=== PATIENT | female | born 1980 | race Caucasian/White ===

== ENCOUNTER → 2022-02-16 10:45 | Outpatient (CLI) | payer OTHER, SELFPAY ==
--- NOTE | 2022-02-16 10:53 | DI.RAD.S_ITS ---
PROCEDURE: XR THORACIC SPINE 2V INDICATIONS: thoracic and lumbar back pain, scoliosis TECHNIQUE: 3 views of the thoracic spine were acquired. COMPARISON: None. FINDINGS: Bones: No fractures or dislocations. Left-sided spinal stabilization chan is present. There is moderate rightward curvature of the mid/lower thoracic spine. Multilevel disc space narrowing and endplate osteophyte formation, indicating degenerative disc disease. No suspicious bony lesions. Visualized ribs are intact. Soft tissues: No paravertebral stripe thickening. IMPRESSION: 1. Postsurgical sequelae. 2. Rightward curvature of the thoracic spine. 3. Multilevel degenerative disc disease. 4. No acute fracture. No osseous lesion. If symptoms and/or clinical suspicion for pathology persist, further assessment with repeat, or advanced imaging (e.g., CT, MRI, or bone scan) may be helpful for further assessment. Dictated by: Darryl Lal M.D. on 02/16/2022 at 12:10 Approved by: Darryl Lal M.D. on 02/16/2022 at 12:11
--- NOTE | 2022-02-16 10:53 | DI.RAD.S_ITS ---
PROCEDURE: XR LUMBAR SPINE 2-3V INDICATIONS: thoracic and lumbar back pain, scoliosis TECHNIQUE: 3 views of the lumbar spine were acquired. COMPARISON: None. FINDINGS: Bones: 5 [id number] vertebrae are present. There is moderate leftward curvature of the mid lumbar spine. Left-sided thoracolumbar spinal stabilization chan is present. No vertebral body compression fractures. No suspicious bony lesions. Multilevel disc space narrowing and endplate osteophyte formation throughout the thoracolumbar spine. Roughly 3 mm of retrolisthesis of L2 on L3. Soft tissues: Overlying bowel gas pattern is normal. No suspicious soft tissue calcifications. IMPRESSION: 1. Postsurgical sequelae. 2. Multilevel degenerative disc disease. 3. Leftward curvature of the lumbar spine. Dictated by: Darryl Lal M.D. on 02/16/2022 at 12:11 Approved by: Darryl Lal M.D. on 02/16/2022 at 12:12
== END ==
PROVIDERS: Referring Provider Internal Medicine Cardiovascular Disease; Visit Provider Internal Medicine Cardiovascular Disease
DX: M51.34 Other intervertebral disc degeneration, thoracic region (principal); M51.36 Other intervertebral disc degeneration, lumbar region; M54.50 Low back pain, unspecified; M41.9 Scoliosis, unspecified
CPT/HCPCS: 72072; 72100

== ENCOUNTER → 2022-05-23 12:50 | Outpatient (CLI) | payer OTHER, SELFPAY ==
--- NOTE | 2022-05-23 12:52 | DI.MRI.S_ITS ---
PROCEDURE: MR LUMBAR SPINE WO CON INDICATIONS: LUMBAR RADICULOPATHY TECHNIQUE: Noncontrast sagittal T1 spin echo and T2 fast echo, sagittal STIR, and T2 fast spin echo through the lumbar spine. In cases with scoliosis, additional coronal T2 fast spin echo may be performed. COMPARISON: None. FINDINGS: Image quality: Excellent. Alignment and Curvature: Levoscoliosis of the lumbar spine with a Barclay angle of 28 degrees. Bone Marrow: Marrow is of normal overall signal. No acute vertebral body compression fractures. Spinal Cord: Conus medullaris terminates at the L1 level. Visualized cord demonstrates normal signal and size. Paraspinous Soft Tissues: No paravertebral masses. T12-L1: No significant disc bulge. The foramina and central canal are patent. L1-L2: No significant disc bulge. The foramina and central canal are patent. L2-L3: Modic type 3 endplate degenerative changes with disc osteophytes and a diffuse disc bulge cause mild bilateral foraminal stenosis. The central canal is patent. L3-L4: The disc is desiccated with no significant disc bulge. The foramina and central canal are patent. L4-L5: No significant disc bulge. The foramina and central canal are patent. L5-S1: No significant disc bulge. The foramina and central canal are patent. IMPRESSION: 1. Degenerative disc disease of L2-3 as detailed above. 2. No other significant disc disease at the other levels. 3. Levoscoliosis of the lumbar spine with a Barclay angle of 28 degrees. Dictated by: Ronal Jacinto M.D. on 05/24/2022 at 10:15 Approved by: Ronal Jacinto M.D. on 05/24/2022 at 10:19
--- NOTE | 2022-05-23 12:52 | DI.MRI.S_ITS ---
PROCEDURE: MR THORACIC SPINE WO CON INDICATIONS: THORACIC RADICULOPATHY TECHNIQUE: Noncontrast sagittal T1 spine echo and T2 fast spin echo, sagittal STIR, and T2 fast spin echo through the thoracic spine. COMPARISON: None. FINDINGS: Image quality: Excellent. Alignment and Curvature: Dextroscoliosis of the thoracic spine with a Barclay angle of 36 degrees. A Johns chan is seen on the left side. Discs: No significant disc bulges of the thoracic spine. No foraminal or central canal stenosis. C7-T1 has no significant disc bulge. C6-7 has disc osteophytes and mild right foraminal stenosis. Bone Marrow: Marrow is of normal overall signal. No acute vertebral body compression fractures. Spinal Cord: Visualized spinal cord is normal in size and signal. Paraspinous Soft Tissues: No paravertebral masses. Miscellaneous: On axial images, central canal and foramina appear widely patent at all scanned levels. IMPRESSION: 1. 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 2. No significant foraminal or central canal stenosis. Dictated by: Ronal Jacinto M.D. on 05/24/2022 at 10:05 Approved by: Ronal Jacinto M.D. on 05/24/2022 at 10:14
== END ==
PROVIDERS: PCP Physician Assistant; Referring Provider Physical Medicine & Rehabilitation; Visit Provider Physical Medicine & Rehabilitation
DX: M47.26 Other spondylosis with radiculopathy, lumbar region (principal); M51.16 Intervertebral disc disorders with radiculopathy, lumbar region; M41.20 Other idiopathic scoliosis, site unspecified; M54.6 Pain in thoracic spine; G89.29 Other chronic pain
CPT/HCPCS: 72146; 72148

== ENCOUNTER 2022-07-31 15:18 | Outpatient (CLI) | payer OTHER, MEDICAID, SELFPAY ==
[2022-07-31] VITALS (7 sets, daily range): BP systolic 119–134; BP diastolic 56–84; PULSE 83–87; RESP 15–24; TEMP 36.6; O2SAT 95–99
--- NOTE | 2022-07-31 15:21 | DI.RAD.S_ITS ---
PROCEDURE: PAIN L/S TRANSFORAMINAL INJECT INDICATIONS: SPONDYLOSIS COMPARISON: None. FINDINGS: Fluoroscopic spot filming was performed to verify placement of spinal needles at the right L2-L3 neural foramen level(s), as labeled on the films. Appropriate location(s) of the needle tip(s) was confirmed by injection of iodinated contrast. IMPRESSION: Access needle tip at the right L2-L3 neural foramen for transforaminal epidural steroid injection. Dictated by: Tamia Steward MD, PhD on 07/31/2022 at 17:03 Approved by: Tamia Steward MD, PhD on 07/31/2022 at 17:04
[2022-07-31] MEDS: MIDAZOLAM 2 MG/2 ML VIAL IV (16:15)
[2022-07-31] MEDS: IOPAMIDOL 15 ML VIAL 3 ML INJ (16:17)
[2022-07-31] MEDS: DEXAMETHASONE 10 MG/ML VIAL 20 MG INJ (16:17)
[2022-07-31] MEDS: BETAMETHASONE 30 MG/5 ML MDV 6 MG INJ (16:17)
[2022-07-31] MEDS: BUPIVACAINE 0.5% (PF) 10 ML VIAL 2 ML INJ (16:18)
--- NOTE | 2022-07-31 16:33 | P.PCN_ITS ---
Date/Time/Diagnoses Date of procedure: 07/31/22 Time of procedure: 16:33 Pre-procedure diagnosis: 1. FORAMINAL STENOSIS WITH LE SYMPTOMS Post-procedure diagnosis: same Procedure Notes Procedure: 1. FLUOROSCOPICALLY GUIDED CONTRAST CONTROLLED TRANSFORAMINAL EPIDURAL STEROID INJECTION - RIGHT L2/3 TFESI Indications: Lo is referred by LANNY Mcginnis for treatment of Foraminal Stenosis with right LE Symptoms Physician: Slick Kwon Total Fluoroscopy time (seconds): 15 Total sedation minutes: 11 Complications: none Procedure in detail & Post-procedure care: FINDINGS Foraminal Nerve Root Compression secondary to disc disease and facet hypertrophy DESCRIPTION OF PROCEDURE Following review of allergy and review of potential side effects and complications, including, but not necessarily limited to, infection, allergic reaction, local tissue breakdown, stroke, temporary or permanent nerve injury, paralysis, and possible , the patient indicated that the patient understood and agreed to proceed. An informed consent document was signed by the patient, witnessed by a nurse, and placed in the patient's chart. Additionally, other treatment options including medications, modalities, and physical therapy were reviewed with the patient. After review of previous anaesthesic history and IV conscious sedation the patient was deemed safe to proceed with today?s procedure with IV conscious sedation as ASA class II designation. Safety time-out was performed to confirm patient ID, procedure to be performed and site of procedure. IV sedation was accomplished with a combination of 2mg of Versed was administered by the RN after DO order, titrated to patient comfort during the course of the procedure while the patient remained responsive to all verbal commands In the prone position following sterile prep and drape of the lumbar region, the right L2/3 posterior neuroforamen was identified fluoroscopically. The skin was anesthetized via a 25-gauge 1.5-inch needle with 1% lidocaine solution. At this point, a 25-gauge 3.5-inch spinal needle was atraumatically introduced and advanced under fluoroscopic guidance through the posterior right L2/3 neuroforamen to approximately the anterior aspect of the canal. Depth was confirmed on lateral view. Following negative aspiration, injection of approximately 1.5 cc of Isovue 200 under live fluoroscopy in the AP view confirmed excellent flow along the nerve root, into the epidural space without vascular or intrathecal uptake observed Radiological data, including multiple fluoroscopic views of the lumbosacral sp ine, reveal a spinal needle at the right L2/3 posterior neuroforamen. Subsequent views show flow of contrast material flowing superiorly and inferiorly along the nerve root confirming epidural flow. Subsequently, a test dose of 1.5 cc of 1% lidocaine solution was administered and patient was observed for two minutes for signs or symptoms of complications, including abdominal pain, shortness of breath, bilateral upper or lower extremity weakness, nausea and vomiting, prior to steroid injection. At this point, a total of 3cc or 20mg of dexamethasone and 6mg of betamethasone was injected without incident. The patient tolerated the procedure well without signs or symptoms of complications prior to transfer to the recovery area continued monitoring without incident. The patient was then transferred to the recovery area where they were observed for an appropriate time after the injection. The patient reported a VAS score of 7 prior to the procedure and a post-procedure VAS of 0. POST OP INSTRUCTIONS The patient was provided a Pain Log to continue to record their response to the target-specific procedure prior to follow-up visit with their referring physician. Additionally, specific post-injection care instructions and a contact number to our office were provided if concerns arise regarding possible complications associated with the procedure are suspected.
== END 2022-07-31 16:48 | disposition home or self-care (01) ==
LOC: RAD 15:20
PROVIDERS: PCP Physician Assistant; Referring Provider Physical Medicine & Rehabilitation; Visit Provider Physical Medicine & Rehabilitation
DX: M48.061 Spinal stenosis, lumbar region without neurogenic claudication (principal); M51.16 Intervertebral disc disorders with radiculopathy, lumbar region
CPT/HCPCS: 64483; 99152; J3490

== ENCOUNTER 2023-02-05 12:35 | Outpatient (CLI) | payer OTHER, MEDICAID, SELFPAY ==
[2023-02-05] VITALS (7 sets, daily range): BP systolic 120–146; BP diastolic 72–94; PULSE 81–98; RESP 10–24; TEMP 36.8; O2SAT 97–99
--- NOTE | 2023-02-05 12:36 | DI.RAD.S_ITS ---
PROCEDURE: PAIN L/S FACET INJ/BLK 1ST PEG COMPARISON: None. INDICATIONS: SPONDYLOSIS FINDINGS: Fluoroscopic spot filming was performed to verify placement of spinal needles at the L2-3 level bilaterally, as labeled on the films. Appropriate locations of the needle tips was confirmed by injection of iodinated contrast. IMPRESSION: Intraprocedural examination demonstrates appropriate needle position. Approved by: Neil Maria M.D. on 02/05/2023 at 21:51
[2023-02-05] MEDS: MIDAZOLAM 2 MG/2 ML VIAL IV (13:22)
[2023-02-05] MEDS: BETAMETHASONE 30 MG/5 ML MDV 12 MG INJ (13:25)
[2023-02-05] MEDS: BUPIVACAINE 0.5% (PF) 10 ML VIAL 2 ML INJ (13:25)
[2023-02-05] MEDS: IOPAMIDOL 15 ML VIAL 3 ML INJ (13:26)
[2023-02-05] MEDS: LIDOCAINE 1% 20 ML 5 ML INJ (13:27)
--- NOTE | 2023-02-05 13:41 | P.PCN_ITS ---
Date/Time/Diagnoses Date of procedure: 02/05/23 Time of procedure: 13:42 Pre-procedure diagnosis: 1. FACET ARTHROPATHY 2. AXIAL LBP 3. MULTILEVEL DDD Post-procedure diagnosis: same Procedure Notes Procedure: 1. FLUOROSCOPICALLY GUIDED CONTRAST CONTROLLED FACET JOINT INJECTIONS BILATERAL L2/3 Indications: Alan is referred by LANNY Mcginnis for treatment of Axial LBP Physician: Slick Kwon Total Fluoroscopy time (seconds): 19 Total sedation minutes: 11 Complications: none Procedure in detail & Post-procedure care: FINDINGS Multilevel Facet Arthropathy with Clinically significant axial LBP DESCRIPTION OF PROCEDURE Fluoroscopically guided, contrast-controlled bilateral L2/3 facet joint injections. Following review of allergy and review of potential side effects and complications, including, but not necessarily limited to, infection, allergic reaction, local tissue breakdown, stroke, temporary or permanent nerve injury, paralysis, and possible , the patient indicated that the patient understood and agreed to proceed. An informed consent document was signed by the patient, witnessed by a nurse, and placed in the patient's chart. Additionally, other t reatment options including medications, modalities, and physical therapy were reviewed with the patient. After review of previous anaesthesic history and IV conscious sedation the patient was deemed safe to proceed with today's procedure with IV conscious sedation as ASA class II designation. Safety time-out was performed to confirm patient ID, procedure to be performed and site of procedure. IV sedation was accomplished with a combination of 2mg of Versed administered by the RN after DO order, titrated to patient comfort during the course of the procedure while the patient remained responsive to all verbal commands In the prone position, following sterile prep and drape of the lumbar region, the posterior aspect of the L2/3 facet joints were identified fluoroscopically. The skin was anesthetized via a 25-gauge 1.5-inch needle with 1% lidocaine solution into the corresponding facet joints. At this point, a 22-gauge 3.5- inch spinal needle was atraumatically introduced and advanced under fluoroscopic guidance into the corresponding facet joints. Following negative aspiration, injections of approximately 0.2cc of Isovue 200 confirmed interarticular placement without vascular uptake. The identical procedure was then performed at the L2/3 facet joints on the left. Radiological data, including multiple fluoroscopic views of the lumbosacral spine, reveal a spinal needle at the L2/3 facet joints bilaterally. Subsequent views show flow of contrast material both superiorly and inferiorly within the joint space without vascular or intrathecal uptake. At this point, a total of 0.5cc including a mixture of 0.25cc Marcaine and 0.25cc betamethasone was injected without complication into each of the corresponding facet joints. The patient tolerated the procedure well without signs or symptoms of complications prior to transfer to the recovery area continued monitoring without incident. The patient was then transferred to the recovery area where they were observed for an appropriate period of time after the injection. The patient reported a VAS score of 7 prior to the procedure and a post-procedure VAS of 0. POST OP INSTRUCTIONS The patient was provided a Pain Log to continue to record their response to the target-specific procedure prior to follow-up visit with their referring physician. Additionally, specific post-injection care instructions and a contact number to our office were provided if concerns arise regarding possible complications associated with the procedure are suspected.
== END 2023-02-05 13:58 | disposition home or self-care (01) ==
PROVIDERS: PCP Physician Assistant; Referring Provider Physical Medicine & Rehabilitation; Visit Provider Physical Medicine & Rehabilitation
DX: M47.816 Spondylosis without myelopathy or radiculopathy, lumbar region (principal); M51.36 Other intervertebral disc degeneration, lumbar region
CPT/HCPCS: 64493; 99152; J0702; J2250

== ENCOUNTER → 2025-06-02 | Outpatient (CLI) | payer MEDICARE, SELFPAY ==
--- NOTE | 2025-06-02 16:43 | DI.MG.S_ITS ---
MM screening mammo BI: 06/02/2025. BI-RADS: 0
== END ==
LOC: MAMMO 16:42
PROVIDERS: PCP Family Medicine; Referring Provider Family Medicine; Visit Provider Family Medicine
DX: Z12.31 Encounter for screening mammogram for malignant neoplasm of breast (principal)
CPT/HCPCS: 77063; 77067